=== PATIENT | female | born 1985 | race African-American/Black ===

== ENCOUNTER 2020-02-25 00:36 | Emergency (ER) | payer SELFPAY ==
[~2020-02-25] VITALS: Ht 160 cm; Wt 67.0 kg
[2020-02-25 00:43] VITALS: BP 126/76
[2020-02-25] MEDS ORDERED: ONDANSETRON 4MG ODT PO ONE (01:45)
[2020-02-25] MEDS ORDERED: ONDANSETRON 4MG ODT PO SCH (02:00)
== END 2020-02-25 05:28 | disposition home or self-care (01) ==
LOC: ER 00:36
DX: T40.7X1A Poisoning by cannabis (derivatives), accidental (unintentional), initial encounter (principal); R11.2 Nausea with vomiting, unspecified; Z88.0 Allergy status to penicillin; Y92.018 Other place in single-family (private) house as the place of occurrence of the external cause
CPT/HCPCS: 99283; Q0162